=== PATIENT | female | born 1965 | race Caucasian/White ===

== ENCOUNTER → 2018-03-07 07:37 | Outpatient (CLI) | payer OTHER, SELFPAY ==
--- NOTE | 2018-03-07 | DI.MG.S_ITS ---
BILATERAL DIGITAL SCREENING MAMMOGRAM 3D/2D WITH CAD: 03/07/2018 CLINICAL: Routine screening. Comparison is made to exams dated: 02/17/2016 mammogram, 12/20/2014 mammogram, and 11/04/2011 mammogram - [facility]. The tissue of both breasts is extremely dense, which lowers the sensitivity of mammography. Current study was also evaluated with a Computer Aided Detection (CAD) system. No significant masses, calcifications, or other findings are seen in either breast. There has been no significant interval change. IMPRESSION: NEGATIVE There is no mammographic evidence of malignancy. A 1 year screening mammogram is recommended. This exam was interpreted at Station ID: [id number]. NOTE: For mammograms, a report in lay terms will be sent to the patient. Approximately 15% of breast malignancies will not be visualized mammographically. In the management of a palpable breast mass, a negative mammogram must not discourage biopsy of a clinically suspicious lesion. Electronically Signed By: Freedom hamilton/dameon:03/07/2018 13:19:21 copy to: Martha Collire letter sent: Normal Exam ACR BI-RADS Category 1: Negative 3341F
== END ==
PROVIDERS: Family Provider Family Medicine; PCP Family Medicine; Visit Provider Nurse Practitioner Family
DX: Z12.31 Encounter for screening mammogram for malignant neoplasm of breast (principal)
CPT/HCPCS: 77063; 77067

== ENCOUNTER → 2019-03-27 07:43 | Outpatient (CLI) | payer OTHER, SELFPAY ==
--- NOTE | 2019-03-27 | DI.MG.S_ITS ---
BILATERAL DIGITAL SCREENING MAMMOGRAM 3D/2D WITH CAD: 03/27/2019 CLINICAL: Routine screening. Comparison is made to exams dated: 03/07/2018 mammogram, 02/17/2016 mammogram, 01/03/2015 mammogram, and 12/20/2014 mammogram - [facility]. The tissue of both breasts is extremely dense, which lowers the sensitivity of mammography. Current study was also evaluated with a Computer Aided Detection (CAD) system. No significant masses, calcifications, or other findings are seen in either breast. There has been no significant interval change. IMPRESSION: NEGATIVE There is no mammographic evidence of malignancy. A 1 year screening mammogram is recommended. This exam was interpreted at Station ID: [id number]. NOTE: For mammograms, a report in lay terms will be sent to the patient. Approximately 15% of breast malignancies will not be visualized mammographically. In the management of a palpable breast mass, a negative mammogram must not discourage biopsy of a clinically suspicious lesion. Electronically Signed By: Lloyd chavez/dameon:03/28/2019 08:50:29 copy to: Martha Collier letter sent: Normal Exam ACR BI-RADS Category 1: Negative 3341F
== END ==
PROVIDERS: Family Provider Family Medicine; PCP Family Medicine; Visit Provider Family Medicine
DX: Z12.31 Encounter for screening mammogram for malignant neoplasm of breast (principal)
CPT/HCPCS: 77063; 77067

== ENCOUNTER → 2019-09-29 14:57 | Outpatient (CLI) | payer OTHER, SELFPAY ==
[2019-10-02 21:08] LABS: COVID19 Sendout Not Detected (Not Detect)
== END ==
PROVIDERS: PCP Family Medicine; Visit Provider Physician Assistant
DX: Z11.59 Encounter for screening for other viral diseases (principal)
CPT/HCPCS: 87635

== ENCOUNTER 2019-10-02 13:46 | Day surgery (SDC) | payer OTHER, SELFPAY ==
--- NOTE | 2019-10-02 12:24 | PM.HP.1 ---
History of Present Illness History of Present Illness Date Patient Seen: 10/02/19 Chief complaint: SDC Narrative: 54 Years Old Female seen today for consideration of a screening colonoscopy. There have been no lower GI symptoms suggesting disease such as change in bowel habits, bleeding, abdominal pain or anemia. There's been no family history of colon cancer or colon polyps. Overall health issues have been stable, including no major cardiac events for at least 6 weeks. Current Medications (verified): 1) Hydrochlorothiazide 25 Mg Oral Tablet (Hydrochlorothiazide) .... Take 1 tablet by mouth once a day, for blood pressure control. 2) Acyclovir 400 Mg Oral Tablet (Acyclovir) .... Take one by mouth every day. If outbreak occurs, then take one by mouth three times daily for 5 days. 3) Mirena (52 Mg) 20 Mcg/24hr Intrauterine Intrauterine Device (Levonorgestrel) .... 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 Household Members: [employer] Education: 14 Alcohol: 4-5/week Patient History Medical History (Updated 10/02/19 @ 14:11 by Bennett Ritchie) Encounter for insertion of mirena IUD (Acute) Meds Home Medications and Allergies Home Medications Medication Instructions Recorded Confirmed Type acyclovir 400 mg PO DAILY 10/02/19 10/02/19 History hydrochlorothiazide 25 mg PO DAILY 10/02/19 10/02/19 History Allergies Allergy/AdvReac Type Severity Reaction Status Date / Time Penicillins AdvReac Unknown as a Verified 10/02/19 14:10 child, unknown rxn Review of Systems Review of Systems ROS: Yes All systems reviewed with the patient and are negative except as otherwise documented Exam Narrative Exam Narrative: GENERAL: Alert and oriented, appearing stated age and in no acute distress. HEENT: Head normocephalic/atraumatic. Neck soft and supple, no lymphadenopathy. LUNGS: Clear to ausculation bilaterally, no wheezes, rhonchi or rales. CV: Normal S1 and S2 with regular rate and rhythm, no audible murmurs, rubs or gallops. ABDOMEN: Soft, non-tender, non-distended, no organomegaly. Positive bowel sounds. EXTREMITIES: No clubbing, cyanosis, or edema. NEURO: Cranial nerves II through XII grossly intact, no focal deficits. PSYCH: Alert and oriented x 3. SKIN: No concerning lesions. Assessment & Plan Assessment & Plan narrative: 1. Screening for colon cancer Plan for colonoscopy. The nature and character of the procedure as well as anticipated results were discussed. The possibility of not completing the procedure was also discussed. Possible complications including aspiration pneumonia, bleeding, perforation and reaction to medications either for sedation or preparation and missed lesions were discussed. Questions were answered and proceeding to the colonoscopy was elected. Informed consent signed. I sincerely appreciate the referral allowing me to participate in this patient's care. Please contact me with any questions or concerns.
--- NOTE | 2019-10-02 12:26 | PM.OP.ENDO ---
Operative Date/Time/Diagnoses Date of procedure: 10/02/19 Pre-op diagnosis: Screening for colon cancer Post-op diagnosis: other (Normal colonoscopy) Procedure & Clinicians Study performed: Colonoscopy Same procedure as scheduled: Yes Indications: Screening for colon cancer Surgeon: Love Paredes Procedure Notes SCOAP/Timeout: 15:26 Procedure in detail: ENDOSCOPIST: Love Paredes MD Sedation RN: Brianda Cervantes RN Sedation start time: 15:27 Sedation end time: 15:54 PROCEDURE: Colonoscopy INDICATIONS: 1. Screening for colon cancer MEDICATION: Levsin 0.125 mg sublingual, incremental doses of Versed and fentanyl until appropriate level sedation achieved. ASA CLASS: 2 CECAL WITHDRAWAL TIME: 14 minutes COMPLICATIONS: None. EXTENT OF PROCEDURE: Cecum. QUALITY OF PREP: Good with portions of liquid stool. PROCEDURE: Prior to insertion of the colonoscope, a digital rectal examination was accomplished with circumferential palpation of the distal rectal mucosa without significant findings being noted. The high-definition colonoscope was passed into the rectum in the usual fashion and advanced over to the cecum without difficulty. The ileocecal valve, appendiceal stoma, and medial wall all could be inspected and no abnormalities were seen. ASCENDING COLON: As the colonoscope was withdrawn, care was taken to expose and inspect the haustral folds and no abnormalities were seen. HEPATIC FLEXURE: Normal, no polyps, diverticula or other abnormalities. TRANSVERSE COLON: Normal, no polyps, diverticula or other abnormalities. DESCENDING COLON: Normal, no polyps, diverticula or other abnormalities. SIGMOID COLON: Normal, no polyps, diverticula or other abnormalities. RECTUM: Normal. J maneuver was produced. There was no significant perianal disease. The J maneuver was broken. The remainder of the rectum was inspected and there was no external hemorrhoid disease. The scope was withdrawn. IMPRESSION: 1. Normal colonoscopy PLAN: 1. Repeat colonoscopy in 10 years. The possibility of a missed lesion including a malignancy has been discussed with the patient previously. Potential alarm symptoms have been discussed and should be reported immediately. Complications: none Post-procedure Recommendations: Colonscopy in 10 years Follow up: as needed Disposition: PACU
[2019-10-02 14:11] VITALS: BMI 23.6
[2019-10-02 14:16] VITALS: BP 137/89; PULSE 63; RESP 16; TEMP 37; O2SAT 96
[2019-10-02] MEDS: LACTATED RINGERS 1,000 ML 200 ML IV (14:28)
[2019-10-02] MEDS: HYOSCYAMINE 0.125 MG TABLET PO (14:32)
[2019-10-02 15:08] LABS: COVID19 -Nasal RAPID Negative (Negative)
[2019-10-02] MEDS: fentaNYL 250 MCG/5 ML INJ IV (15:42)
[2019-10-02] MEDS: MIDAZOLAM 5 MG/5 ML VIAL IV (15:42)
[2019-10-02 16:03] VITALS: BP 133/78; PULSE 59; RESP 12; O2SAT 97
[2019-10-02 16:09] VITALS: BP 124/79; PULSE 54; RESP 16; O2SAT 98
[2019-10-02 16:20] VITALS: BP 124/77; PULSE 56; RESP 16; TEMP 36.4; O2SAT 99
== END 2019-10-02 16:30 | disposition home or self-care (01) ==
PROVIDERS: PCP Family Medicine; Referring Provider Family Medicine; Visit Provider Student in an Organized Health Care Education/Training Program
PROC: 0DJD8ZZ Inspection of Lower Intestinal Tract, Via Natural or Artificial Opening Endoscopic (ICD-10-PCS; CPT 45378; principal; 2019-10-02 15:15)
DX: Z12.11 Encounter for screening for malignant neoplasm of colon (principal); Z11.59 Encounter for screening for other viral diseases; I10 Essential (primary) hypertension; E78.5 Hyperlipidemia, unspecified; A60.00 Herpesviral infection of urogenital system, unspecified
CPT/HCPCS: 45378; 87635; J2250; J3010

== ENCOUNTER → 2020-05-02 08:39 | Outpatient (CLI) | payer OTHER, SELFPAY ==
--- NOTE | 2020-05-02 | DI.MG.S_ITS ---
BILATERAL DIGITAL SCREENING MAMMOGRAM 3D/2D WITH CAD: 05/02/2020 CLINICAL: Routine screening. Comparison is made to exams dated: 03/27/2019 mammogram, 03/07/2018 mammogram, and 02/17/2016 mammogram - [facility]. The tissue of both breasts is extremely dense, which lowers the sensitivity of mammography. Current study was also evaluated with a Computer Aided Detection (CAD) system. No significant masses, calcifications, or other findings are seen in either breast. There has been no significant interval change. IMPRESSION: NEGATIVE There is no mammographic evidence of malignancy. A 1 year screening mammogram is recommended. This exam was interpreted at Station ID: [id number]. NOTE: For mammograms, a report in lay terms will be sent to the patient. Approximately 15% of breast malignancies will not be visualized mammographically. In the management of a palpable breast mass, a negative mammogram must not discourage biopsy of a clinically suspicious lesion. Electronically Signed By: Nicolas Leblanc acr/penrad:05/02/2020 09:07:12 copy to: Martha Collier letter sent: Normal Exam ACR BI-RADS Category 1: Negative 3341F
== END ==
PROVIDERS: PCP Family Medicine; Referring Provider Nurse Practitioner Family; Visit Provider Nurse Practitioner Family
DX: Z12.31 Encounter for screening mammogram for malignant neoplasm of breast (principal)
CPT/HCPCS: 77063; 77067

== ENCOUNTER 2021-12-05 18:20 | Emergency (ER) | payer OTHER, SELFPAY ==
[2021-12-05 18:28] VITALS: BP 166/93; PULSE 79; RESP 18; TEMP 36.3; O2SAT 98; BMI 21.9
--- NOTE | 2021-12-05 19:39 | DI.US.S_ITS ---
PROCEDURE: US PERIPH VENOUS UP EXTREM RT INDICATIONS: RUQ PAIN TECHNIQUE: Real-time imaging, as well as color and pulse Doppler interrogation, was performed of the right upper extremity deep veins from the inferior neck to the antecubital fossa. COMPARISON: None. FINDINGS: The internal jugular vein, visualized portions of the subclavian vein, axillary, and brachial veins are free of intraluminal thrombus. Where physically possible, the veins are normally compressible. Color and pulse Doppler demonstrate normal intraluminal flow, with expected phasicity and pulsatility. Additional scanning of the cephalic and basilic veins of the superficial system demonstrate normal compressibility, without thrombus. IMPRESSION: 1. No evidence of deep venous thrombosis in the right upper extremity. Dictated by: Freedom Rebolledo M.D. on 12/05/2021 at 21:21 Approved by: Freedom Rebolledo M.D. on 12/05/2021 at 21:22
--- NOTE | 2021-12-05 19:39 | ED_ITS ---
HPI - Extremity Injury (Upper) General Chief Complaint: Extremity Injury, Upper Stated Complaint: strange sensation in her right bicep/upper arm Time Seen by Provider: 12/05/21 19:23 Source: patient Mode of arrival: Ambulatory History of Present Illness HPI narrative: 56-year-old female nonsmoker with noncontributory medical history presents at the request of her primary care provider for evaluation of pain, fullness in his squeezing sensation of her right upper extremity. She states that she is twice had mechanical falls in the past week in which she fell forward onto outstretched arms and is noticing for the past few days the symptoms noted above. She has no significant shoulder elbow or wrist pain. She denies any numbness, tingling or weakness. She denies any redness or warmth nor any fever, shaking chills. She denies any history of clot. She denies chest pain or shortness of breath. She is not dizzy nor weak or lightheaded. She is otherwise well and free of complaint. She had called her primary care provider and discussed over the phone at which point she was sent here for evaluation of possible DVT Related Data Home Medications Medication Instructions Recorded Confirmed acyclovir 400 mg tablet 400 mg PO DAILY 10/02/19 10/02/19 hydrochlorothiazide 25 mg tablet 25 mg PO DAILY 10/02/19 10/02/19 Allergies Allergy/AdvReac Type Severity Reaction Status Date / Time Penicillins AdvReac Unknown as a Verified 10/02/19 14:10 child, unknown rxn Review of Systems Review of Systems Narrative: GENERAL: Denies chills, fatigue, malaise, fever, sweats. HEENT: Denies sinus pain, ear pain, sore throat, difficulty swallowing, dizziness. RESPIRATORY: Denies dyspnea, cough, wheezing, hemoptysis, sputum. CARDIOVASCULAR: Denies chest pain, palpitations, orthopnea, edema, GASTROINTESTINAL: Denies nausea, vomiting, abdominal pain, diarrhea, constipation, melena. : Denies dysuria, frequency, incontinence, hematuria, urinary retention. MUSCULOSKELETAL: See HPI SKIN: Denies rash, skin lesions, or other NEUROLOGIC: Denies weakness, headache, numbness, change in speech, confusion, seizures, incoordination. PSYCHIATRIC: No concerning psychosocial issues. 12 point review of systems is negative except for those stated above Patient History Medical History Encounter for insertion of mirena IUD Social History household members: spouse Smoking Status: Never smoker alcohol intake: current Smoking Status: Never smoker alcohol intake frequency: 0-2 drinks per day Substance Use Type: does not use Exam Narrative Exam Narrative: GENERAL: [56] year old patient appears stated age. Well-developed patient, in mild distress. HEAD: Atraumatic. Normocephalic. EYES: Pupils equal round and reactive. Extraocular motions intact. No scleral icterus. No injection or drainage. ENT: Nose without bleeding, purulent drainage. Throat without erythema, tonsillar hypertrophy or exudate. Airway patent. NECK: Trachea midline. Non tender CARDIOVASCULAR: Regular rate and rhythm without murmurs, gallops, or rubs. RESPIRATORY: Clear to auscultation. Breath sounds equal bilaterally. No wheezes, rales, or rhonchi. GASTROINTESTINAL: Abdomen soft, non-tender, nondistended. EXTREMITIES: No edema or joint tenderness. Patient describes a fullness or squeezing sensation around her right biceps, pointing to the underside, or lying the vascular bundle. There is no obvious redness, swelling, ecchymosis or reproducible tenderness. She has full painless range of motion at the shoulder, elbow and wrist. There is no numbness, tingling or measurable weakness BACK: Nontender without deformity or crepitance. No flank tenderness. NEURO: AOx3. SKIN: No rash or erythema of visible areas Initial Vital Signs Initial Vital Signs: Vital Signs Temperature 97.4 F L 12/05/21 18:28 Pulse Rate 79 12/05/21 18:28 Respiratory Rate 18 12/05/21 18:28 Blood Pressure 166/93 H 12/05/21 18:28 Pulse Oximetry 98 12/05/21 18:28 Oxygen Delivery Method 12/05/21 18:28 Course Orders Ordered: ED Orders 12/05/21 19:39 US periph venous up extrem rt Stat Vital Signs Vital signs: Vital Signs - 8 hr 12/05/21 18:28 12/05/21 20:45 Temperature 97.4 F L Pulse Rate 79 67 Respiratory Rate 18 16 Blood Pressure 166/93 H 141/84 H Pulse Oximetry 98 99 Oxygen Delivery Method Room Air Room Air MDM - Extremity Injury (Upper) Imaging Data US - DVT: Radiologist's Impression: Close Peripheral Vascular Ultrasound (Signed) Freedom Rebolledo - 12/05/21 Mammogram Screening (Signed) TyronsaschaNicolas - 05/02/20 Telemetry Strips 10/02/19 Mammogram Screening (Signed) Lloyd Santos - 03/27/19 Mammogram Screening (Signed) Freedom Rebolledo - 03/07/18 Launch?[address] [address] Ultrasound Report Signed Patient: Janet Raza MR#: [id number] : 1965 Acct:[id number] Age/Sex: 56 / F Date of Service: 12/05/21 Loc: ED Accession Number: [id number] ?? Procedure: US periph venous up extrem rt Ordering Provider: Dean Serna D.O. PROCEDURE:? US PERIPH VENOUS UP EXTREM RT ? INDICATIONS:? RUQ PAIN ? TECHNIQUE:? Real-time imaging, as well as color and pulse Doppler interrogation, was performed of the right upper extremity deep veins from the inferior neck to the antecubital fossa.? ? COMPARISON:? None. ? FINDINGS:? The internal jugular vein, visualized portions of the subclavian vein, axillary, and brachial veins are free of intraluminal thrombus.? Where physically possible, the veins are normally compressible.? Color and pulse Doppler demonstrate normal intraluminal flow, with expected phasicity and pulsatility.? Additional scanning of the cephalic and basilic veins of the superficial system demonstrate normal compressibility, without thrombus.? ? IMPRESSION:? ? 1.? No evidence of deep venous thrombosis in the right upper extremity. ? ? Dictated by: Freedom Rebolledo M.D. on 12/05/2021 at 21:21 ? ? Approved by: Freedom Rebolledo M.D. on 12/05/2021 at 21:22 ? [facility] Narrative Medical decision making narrative: Patient presents with discomfort in a squeezing sensation on the underside of her right upper arm for the past few days. She reports that she is had a history of this previous times in the past but it never lasted more than 2 or 3 days. She had spoken with her primary care provider and was sent here for evaluation and to rule out a DVT. There was discussion at the bedside about the very reassuring history and physical exam without any obvious external manifestation of disease or illness. We did discuss x-ray but patient had no bony tenderness and full painless range of motion. There is no redness, warmth or swelling to suggest infection. Ultrasound was ordered and there is no evidence of DVT. Return precautions discussed and questions answered to her apparent satisfaction Discharge Plan Departure Patient Disposition: Home Clinical Impression: Arm pain Instructions: DI for Arm Pain Activity Restrictions/Additional Instructions: *You have been diagnosed with [right arm pain. As we discussed your history and physical exam are reassuring and the ultrasound showed no evidence of blood clot. Furthermore, as we discussed my suspicion is quite low for infection, fracture or any kind of significant nerve issue that would require specific or immediate intervention] *What to do: *Please continue to take your regular medications as directed. *Please follow up with your primary care provider in 2-3 days, call for an appointment. Let them know you were seen in the Emergency Department and that we ask that you be seen in follow up. We will electronically transmit a record of today's note if your PCP is in our system *If you do not have a primary care provider please contact the [facility] Resource line at [phone]. They will ask some questions about your medical history and help get you set up with a doctor in the community. *Return to Emergency Department if you should have any new, worsening or concerning symptoms, such as [fever greater than 101 F, shaking chills, worsening pain, persistent vomiting or other bothersome symptoms] Prescriptions: No Action acyclovir 400 mg tablet 400 mg PO DAILY hydrochlorothiazide 25 mg tablet 25 mg PO DAILY Referrals: Martha Collier MD [Primary Care Provider] - Visit Report Forms: Patient Portal/API
[2021-12-05 20:45] VITALS: BP 141/84; PULSE 67; RESP 16; O2SAT 99
== END 2021-12-05 20:47 | disposition home or self-care (01) ==
PROVIDERS: Emergency Provider Emergency Medicine; PCP Family Medicine
DX: M79.601 Pain in right arm (principal)
CPT/HCPCS: 93971; 99281; 99283

== ENCOUNTER → 2023-02-24 15:48 | Outpatient (ROUT) | payer BC, SELFPAY ==
[2023-02-24 17:33] LABS: Influenza A - CEPHEID Flu A NEGATIVE (NEGATIVE); Influenza B - CEPHEID Flu B NEGATIVE (NEGATIVE)
[2023-02-24 17:43] LABS: COVID-19 CEPHEID 4-PLEX PCR Negative (Negative)
[2023-02-25 10:56] LABS: Respiratory Syncytial Virus Negative (Negative)
== END ==
PROVIDERS: PCP Family Medicine; Visit Provider Internal Medicine
DX: R05.2 Subacute cough (principal)
CPT/HCPCS: 0240U; 0241U

== ENCOUNTER → 2023-08-18 07:44 | Outpatient (CLI) | payer BC, SELFPAY ==
--- NOTE | 2023-08-18 07:45 | DI.MG.S_ITS ---
BILATERAL DIGITAL SCREENING MAMMOGRAM 3D/2D WITH CAD: 08/18/2023 CLINICAL: Routine screening. Comparison is made to exams dated: 05/02/2020 mammogram, 03/27/2019 mammogram, and 03/07/2018 mammogram - [facility]. Both breasts are heterogeneously dense, which may obscure small masses (category c / 51-75% glandular tissue). Current study was also evaluated with a Computer Aided Detection (CAD) system. No significant masses, calcifications, or other findings are seen in either breast. There has been no significant interval change. IMPRESSION: NEGATIVE There is no mammographic evidence of malignancy. A 1 year screening mammogram is recommended. Based on the Tyrer Cuzick model (a risk assessment model) the patient's lifetime risk is 13.1% and her 10 year risk is 4.9%. According to the ACR, ACS, and NCCN guidelines, an annual breast MRI exam along with mammogram is recommended if the patient's lifetime risk is 20% or greater. This exam was interpreted at Station ID: [id number]. NOTE: For mammograms, a report in lay terms will be sent to the patient. Approximately 15% of breast malignancies will not be visualized mammographically. In the management of a palpable breast mass, a negative mammogram must not discourage biopsy of a clinically suspicious lesion. Electronically Signed By: Kayla hylton/dameon:08/20/2023 15:37:58 copy to: Martha Collier letter sent: Normal Exam ACR BI-RADS Category 1: Negative 3341F
== END ==
LOC: MAMMO 07:45
PROVIDERS: PCP Family Medicine; Referring Provider Family Medicine; Visit Provider Family Medicine
DX: Z12.31 Encounter for screening mammogram for malignant neoplasm of breast (principal); R92.333 Mammographic heterogeneous density, bilateral breasts
CPT/HCPCS: 77063; 77067

== ENCOUNTER 2025-01-05 06:04 | Emergency (ER) | payer BC, SELFPAY ==
[2025-01-05] VITALS (9 sets, daily range): BP systolic 140–188; BP diastolic 68–92; PULSE 58–89; RESP 15–20; TEMP 36.1; O2SAT 97–99; BMI 22.2
--- NOTE | 2025-01-05 06:09 | EKG_ITS ---
[facility]
--- NOTE | 2025-01-05 06:09 | DI.RAD.S_ITS ---
PROCEDURE: XR CHEST 1V
--- NOTE | 2025-01-05 06:09 | ED.SYNCOPE ---
HPI - Syncope <Aleks Wright DO - Last Filed: 01/05/25 06:47> General Chief Complaint: Syncope Stated Complaint: Possible stitches under chin x 1 day Time Seen by Provider: 01/05/25 06:05 History of Present Illness HPI narrative: 59-year-old female no significant past medical history comes into the ED from home for evaluation of chin pain, patient states that last night she did have some alcohol states that she ended up passing out secondary to this, she states that she is not sure how long she was on the floor but was able to stand bear weight ambulate immediately after, she states that when she got inside she had another syncopal episode. She states that she was not having any headache visual disturbances chest pain shortness of breath before during or after these episodes. She states that she did notice a cut to the bottom of her chin which prompted her to come into the ED. she denies any symptoms at this time. She states that this has happened in the past twice but never seek medical attention for this. Related Data Home Medications ?Medication ?Instructions ?Recorded ?Confirmed acyclovir 400 mg tablet 400 mg PO DAILY 10/02/19 10/17/22 hydrochlorothiazide 25 mg tablet 25 mg PO DAILY 10/02/19 10/17/22 Allergies Allergy/AdvReac Type Severity Reaction Status Date / Time Penicillins AdvReac Unknown as a Verified 01/05/25 06:11 child, unknown rxn Review of Systems <DO Chilo Crocker Last Filed: 01/05/25 06:47> Review of Systems Narrative: General: Positive syncope Denies fever, chills, weight loss HEENT: Positive cut to the chin, Denies headache, eye drainage, eye irritation, sore throat, voice change Cardiovascular: Denies any chest pain, palpitations, tachycardia Respiratory: Denies any shortness of breath, cough, wheeze, stridor GI/: Denies any abdominal pain, nausea, vomiting, diarrhea, bright red blood per rectum, melanotic stools, urinary frequency, urinary retention, dysuria, hematuria MSK: Denies any joint pain, muscle pains, swelling Skin: Denies any rashes, lesions, discoloration Neuro: Denies any headache, lightheadedness, dizziness, fainting, weakness Psych: Denies SI/HI Patient History <Aleks Wright DO - Last Filed: 01/05/25 06:47> Medical History Encounter for insertion of mirena IUD Social History household members: spouse Smoking Status: Never smoker alcohol intake: current alcohol intake frequency: 0-2 drinks per day Exam <Aleks Wright DO - Last Filed: 01/05/25 06:47> Narrative Exam Narrative: General: Cooperative, well-developed, not in acute distress HEENT: Patient with 1 cm laceration noted to the bottom of the chin no active bleeding no foreign body, PERRLA, normal sclera, eyelids normal Neck: Active full range of motion, atraumatic Chest: Normal to inspection, negative crepitus, no overlying erythema ecchymosis Respiratory: Normal respiratory effort, not in acute respiratory distress, clear to auscultation bilaterally negative cough, wheeze, tachypnea, rhonchi, rales Cardiology: Regular rate rhythm negative gallop, murmur, rubs GI/: No tenderness to palpation, soft, non rigid, normal to inspection, exam deferred MSK: Full active range of motion in all 4 extremities, atraumatic, no tenderness to palpation of any bony prominences Skin: No rashes or lesions noted Neuro: Alert awake oriented x3, moves all 4 extremities spontaneously, cranial nerves intact, able to answer all questions appropriately follows commands appropriately Psych: Cooperative, negative suicidal or homicidal ideations Initial Vital Signs Initial Vital Signs: Vital Signs Temperature 97.0 F L 01/05/25 06:11 Pulse Rate 89 01/05/25 06:11 Respiratory Rate 20 01/05/25 06:11 Blood Pressure 188/92 H 01/05/25 06:11 Pulse Oximetry 99 01/05/25 06:11 Oxygen Delivery Method Room Air 01/05/25 06:11 <Venkatesh Watkins, DO - Last Filed: 01/05/25 09:48> Initial Vital Signs Initial Vital Signs: Vital Signs Temperature 97.0 F L 01/05/25 06:11 Pulse Rate 89 01/05/25 06:11 Respiratory Rate 20 01/05/25 06:11 Blood Pressure 188/92 H 01/05/25 06:11 Pulse Oximetry 99 01/05/25 06:11 Oxygen Delivery Method Room Air 01/05/25 06:11 Procedures <DO Chilo Crocker Last Filed: 01/05/25 06:47> Laceration Repair Laceration 1: Time of procedure: 06:28 Site: other (chin) Size (cm): 1 Description: linear Depth: simple, single layer Local Anesthetic: lidocaine 1% Amount of anesthesia used (mL): 2 Skin layer closed with: other (ethilon) Skin layer suture size: 5-0 Number of sutures: 3 Technique: simple, interrupted Course <Aleks DO Kyle - Last Filed: 01/05/25 06:47> Orders Ordered: ED Orders 01/05/25 06:09 XR chest 1V Stat EKG-12 Lead Stat 01/05/25 06:10 CT cervical spine wo con Stat CT head/brain wo con Stat 01/05/25 06:36 Complete Blood Count AUTO DIFF Stat Comprehensive Metabolic Panel Stat Lipase Stat Magnesium Stat NT-proBNP (BNP-Adult 18+) Stat PTT Partial Thromboplastin David Stat Prothrombin Time INR Stat Troponin I Stat 01/05/25 08:58 Trop I [Troponin I] Stat Discontinued Medications Diphtheria/Tetanus/Acell Pertussis (Tet,Diph,Pertuss(Acell),Vac/Pf 0.5 Ml Syringe) 0.5 ml IM .ONCE ONE Stop: 01/05/25 06:10 Last Admin: 01/05/25 06:42 Dose: 0.5 ml Documented By: NAKITA Sodium Chloride (Normal Saline 0.9%) 1,000 mls @ 1,000 mls/hr IV BOLUS ONE Stop: 01/05/25 07:08 Last Infusion: 01/05/25 09:07 Dose: Infused Documented By: Admin: 01/05/25 06:41 Dose: 1,000 mls/hr Documented By: NAKITA Vital Signs Vital signs: Vital Signs - 8 hr 01/05/25 06:11 01/05/25 06:32 01/05/25 06:33 Temperature 97.0 F L Pulse Rate 89 65 64 Respiratory Rate 20 Blood Pressure 188/92 H Pulse Oximetry 99 99 99 Oxygen Delivery Method Room Air 01/05/25 06:33 01/05/25 07:00 01/05/25 07:00 Temperature Pulse Rate 59 L Respiratory Rate Blood Pressure 160/88 H 140/86 Pulse Oximetry 97 Oxygen Delivery Method 01/05/25 07:30 01/05/25 07:30 01/05/25 08:00 Temperature Pulse Rate 58 L 58 L Respiratory Rate Blood Pressure 152/80 H Pulse Oximetry 98 98 Oxygen Delivery Method 01/05/25 08:00 01/05/25 09:25 01/05/25 09:25 Temperature Pulse Rate 66 Respiratory Rate Blood Pressure 158/84 H 148/68 H Pulse Oximetry 98 Oxygen Delivery Method <Venkatesh Watkins, DO - Last Filed: 01/05/25 09:48> Orders Ordered: ED Orders 01/05/25 06:09 XR chest 1V Stat EKG-12 Lead Stat 01/05/25 06:10 CT cervical spine wo con Stat CT head/brain wo con Stat 01/05/25 06:36 Complete Blood Count AUTO DIFF Stat Comprehensive Metabolic Panel Stat Lipase Stat Magnesium Stat NT-proBNP (BNP-Adult 18+) Stat PTT Partial Thromboplastin David Stat Prothrombin Time INR Stat Troponin I Stat 01/05/25 08:58 Trop I [Troponin I] Stat Discontinued Medications Diphtheria/Tetanus/Acell Pertussis (Tet,Diph,Pertuss(Acell),Vac/Pf 0.5 Ml Syringe) 0.5 ml IM .ONCE ONE Stop: 01/05/25 06:10 Last Admin: 01/05/25 06:42 Dose: 0.5 ml Documented By: NAKITA Sodium Chloride (Normal Saline 0.9%) 1,000 mls @ 1,000 mls/hr IV BOLUS ONE Stop: 01/05/25 07:08 Last Infusion: 01/05/25 09:07 Dose: Infused Documented By: Admin: 01/05/25 06:41 Dose: 1,000 mls/hr Documented By: NAKITA Vital Signs Vital signs: Vital Signs - 8 hr 01/05/25 06:11 01/05/25 06:32 01/05/25 06:33 Temperature 97.0 F L Pulse Rate 89 65 64 Respiratory Rate 20 Blood Pressure 188/92 H Pulse Oximetry 99 99 99 Oxygen Delivery Method Room Air 01/05/25 06:33 01/05/25 07:00 01/05/25 07:00 Temperature Pulse Rate 59 L Respiratory Rate Blood Pressure 160/88 H 140/86 Pulse Oximetry 97 Oxygen Delivery Method 01/05/25 07:30 01/05/25 07:30 01/05/25 08:00 Temperature Pulse Rate 58 L 58 L Respiratory Rate Blood Pressure 152/80 H Pulse Oximetry 98 98 Oxygen Delivery Method 01/05/25 08:00 01/05/25 09:25 01/05/25 09:25 Temperature Pulse Rate 66 Respiratory Rate Blood Pressure 158/84 H 148/68 H Pulse Oximetry 98 Oxygen Delivery Method MDM - Syncope <Aleks Wright, DO - Last Filed: 01/05/25 06:47> Lab Data 01/05/25 06:36 01/05/25 06:36 Labs: Lab Results 01/05/25 01/05/25 Range/Units 06:36 08:58 WBC 7.7 (4.5-11.0) X10^3/uL RBC 4.56 (4.0-5.2) X10^6/uL Hgb 14.1 (12.0-16.0) g/dL Hct 41.4 (36-46) % MCV 90.8 (80-100) fL MCH 30.9 (26-34) PG MCHC 34.0 (30-36) % RDW 13.2 (11.6-14.8) % Plt Count 181 (150-400) X10^3/uL Neut % (Auto) 75.5 H (50-75) % Lymph % (Auto) 16.5 L (25-40) % Boundary % (Auto) 6.7 (3-14) % Eos % (Auto) 0.9 L (2-4) % Baso % (Auto) 0.4 (0-2) % Neut # (Auto) 5800 (8789-2568) /uL Lymph # (Auto) 1300 (0219-9115) /uL Boundary # (Auto) 500 (0-900) /uL Eos # (Auto) 100 (0-450) /uL Baso # (Auto) 0 (0-100) /uL PT 10.6 (9.4-12.5) SECONDS INR 0.9 (0.9-1.3) APTT 25 L (25.1-36.5) SECONDS Sodium 138 (137-145) mmol/L Potassium 4.3 (3.4-5.1) mmol/L Chloride 103 (98-107) mmol/L Carbon Dioxide 29 (22-32) mmol/L BUN 15 (7-17) mg/dL Creatinine 0.81 (0.52-1.04) mg/dL Estimated GFR > 60 (>60) mL/min BUN/Creatinine Ratio 18.5 (6-22) Glucose 106 H (70-99) mg/dL Calcium 9.1 (8.4-10.2) mg/dL Magnesium 1.9 (1.6-2.3) mg/dL Total Bilirubin 0.8 (0.2-1.3) mg/dL AST 68 H (14-36) IU/L ALT 66 H (<35) IU/L Alkaline Phosphatase 66 (38-126) U/L Troponin I < 0.012 0.014 (0.01-0.034) ng/mL NT-Pro-B Natriuret Pep 110 (<125) pg/mL Total Protein 7.1 (6.3-8.2) g/dL Albumin 4.4 (3.5-5.0) g/dL Globulin 2.7 (1.7-4.1) g/dL Albumin/Globulin Ratio 1.6 (1.0-2.8) Lipase 118 (23-300) U/L ECG Data Interpretation: EKG interpreted ED physician sinus 62 beats per minute QTC 442, QRS NC interval within normal limits, normal axis nonspecific ST changes no STEMI MDM Narrative Medical decision making narrative: 59-year-old female without any pertinent past medical history comes into the ED from home for evaluation of syncope. She states that last night she did have some alcoholic beverages states that she ended up passing out secondary to this. She states that she is unsure how long she was unconscious for but was able to wake up ambulate, states this happened outside her house. He states that as she went back inside of the house she had another episode of syncope. Denies any chest pain shortness breath before during or after these episodes. She states that she noticed a cut to the bottom of her chin was just performed prompted her in. She states that this is happened 2 times in the past with very similar situations. She did not seek medical attention at that time. Patient unsure of tetanus vaccination status this was updated here. On my exam she does have a 1 cm laceration to the bottom of her chin no active bleeding she has no tenderness to palpation of any bony prominences. She has NIH of 0 no focal deficits. Patient did have lab work imaging EKG performed here in the emergency department patient had 3 sutures placed to the chin, 5 0 Ethilon patient had 3 simple interrupted sutures placed. 0700: Patient was signed out to Dr. Watkins, final disposition pending for workup imaging and re-evaluation <Venkatesh Watkins, DO - Last Filed: 01/05/25 09:48> Lab Data Labs: Lab Results 01/05/25 01/05/25 Range/Units 06:36 08:58 WBC 7.7 (4.5-11.0) X10^3/uL RBC 4.56 (4.0-5.2) X10^6/uL Hgb 14.1 (12.0-16.0) g/dL Hct 41.4 (36-46) % MCV 90.8 (80-100) fL MCH 30.9 (26-34) PG MCHC 34.0 (30-36) % RDW 13.2 (11.6-14.8) % Plt Count 181 (150-400) X10^3/uL Neut % (Auto) 75.5 H (50-75) % Lymph % (Auto) 16.5 L (25-40) % Boundary % (Auto) 6.7 (3-14) % Eos % (Auto) 0.9 L (2-4) % Baso % (Auto) 0.4 (0-2) % Neut # (Auto) 5800 (6993-4178) /uL Lymph # (Auto) 1300 (3626-4989) /uL Boundary # (Auto) 500 (0-900) /uL Eos # (Auto) 100 (0-450) /uL Baso # (Auto) 0 (0-100) /uL PT 10.6 (9.4-12.5) SECONDS INR 0.9 (0.9-1.3) APTT 25 L (25.1-36.5) SECONDS Sodium 138 (137-145) mmol/L Potassium 4.3 (3.4-5.1) mmol/L Chloride 103 (98-107) mmol/L Carbon Dioxide 29 (22-32) mmol/L BUN 15 (7-17) mg/dL Creatinine 0.81 (0.52-1.04) mg/dL Estimated GFR > 60 (>60) mL/min BUN/Creatinine Ratio 18.5 (6-22) Glucose 106 H (70-99) mg/dL Calcium 9.1 (8.4-10.2) mg/dL Magnesium 1.9 (1.6-2.3) mg/dL Total Bilirubin 0.8 (0.2-1.3) mg/dL AST 68 H (14-36) IU/L ALT 66 H (<35) IU/L Alkaline Phosphatase 66 (38-126) U/L Troponin I < 0.012 0.014 (0.01-0.034) ng/mL NT-Pro-B Natriuret Pep 110 (<125) pg/mL Total Protein 7.1 (6.3-8.2) g/dL Albumin 4.4 (3.5-5.0) g/dL Globulin 2.7 (1.7-4.1) g/dL Albumin/Globulin Ratio 1.6 (1.0-2.8) Lipase 118 (23-300) U/L Imaging Data CT scan - head: Radiologist's Impression: Patient: Janet Raza MR#: [id number] : 1965 Acct:[id number] Age/Sex: 59 / F Date of Service: 01/05/25 Loc: ED Accession Number: [id number] Procedure: CT head/brain wo con Ordering Provider: Aleks Wright D.O. PROCEDURE: CT HEAD/BRAIN WO CON INDICATIONS: Trauma, hit chit s/p syncope TECHNIQUE: Noncontrast 4.5 mm thick angled axial sections acquired from the foramen magnum to the vertex, with coronal and sagittal reformats. For radiation dose reduction, the following was used: automated exposure control, adjustment of mA and/or kV according to patient size. COMPARISON: None. FINDINGS: Image quality: Diagnostic. CSF spaces: Basal cisterns are patent. No extra-axial fluid collections. Ventricles are normal in size and shape. Brain: No midline shift. No intracranial mass effect or hemorrhage. Tuttle-white matter interface is normal. Skull and face: Calvarium and visualized facial bones are intact, without suspicious lesions. Sinuses: Mild mucosal thickening in bilateral maxillary and ethmoid sinuses are seen. Bilateral mastoid air cells are well aerated. IMPRESSION: No acute intracranial pathology. No discrepancies from preliminary reading. CT - cervical spine: Radiologist's Impression: [address] [address] [address] Scan Report Signed Patient: Janet Raza MR#: [id number] : 1965 Acct:[id number] Age/Sex: 59 / F Date of Service: 01/05/25 Loc: ED Accession Number: [id number] Procedure: CT cervical spine wo con Ordering Provider: Aleks Wright D.O. PROCEDURE: CT CERVICAL SPINE WO CON INDICATIONS: trauma TECHNIQUE: Noncontrast 3 mm thick sections acquired from the skull base to the T4 level. Sagittal and coronal reformats were then constructed. For radiation dose reduction, the following was used: automated exposure control, adjustment of mA and/or kV according to patient size. COMPARISON: None. FINDINGS: Image quality: Excellent. Bones: No fractures or dislocations. Mild loss of disc height, degenerative endplate changes and bilateral facet hypertrophic changes are seen throughout cervical spine. Visualized superior ribs are intact. Soft tissues: Prevertebral soft tissues are normal in thickness. No paravertebral hematomas. No apical pneumothoraces. IMPRESSION: 1. No displaced fracture or traumatic subluxation. 2. Mild spondylitic changes throughout cervical spine. No significant discrepancies from preliminary reading. Chest x-ray: Radiologist's Impression: [address] [address] XRay Report Signed Patient: Janet Raza MR#: [id number] : 1965 Acct:[id number] Age/Sex: 59 / F Date of Service: 01/05/25 Loc: ED Accession Number: [id number] Procedure: XR chest 1V Ordering Provider: Aleks Wright D.O. PROCEDURE: XR CHEST 1V INDICATIONS: syncope TECHNIQUE: One view of the chest was acquired. COMPARISON: None. FINDINGS: Surgical changes and devices: None. Lungs and pleura: Lungs are clear. No pleural effusions or pneumothorax. Mediastinum: Mediastinal contours appear normal. Heart size is normal. Bones and chest wall: No suspicious bony lesions. Overlying soft tissues appear unremarkable. IMPRESSION: No acute cardiopulmonary pathology. No discrepancies. MDM Narrative Medical decision making narrative: 59-year-old female without any pertinent past medical history comes into the ED from home for evaluation of syncope. She states that last night she did have some alcoholic beverages states that she ended up passing out secondary to this. She states that she is unsure how long she was unconscious for but was able to wake up ambulate, states this happened outside her house. He states that as she went back inside of the house she had another episode of syncope. Denies any chest pain shortness breath before during or after these episodes. She states that she noticed a cut to the bottom of her chin was just performed prompted her in. She states that this is happened 2 times in the past with very similar situations. She did not seek medical attention at that time. Patient unsure of tetanus vaccination status this was updated here. On my exam she does have a 1 cm laceration to the bottom of her chin no active bleeding she has no tenderness to palpation of any bony prominences. She has NIH of 0 no focal deficits. Patient did have lab work imaging EKG performed here in the emergency department patient had 3 sutures placed to the chin, 5 0 Ethilon patient had 3 simple interrupted sutures placed. 0700: Patient was signed out to Dr. Watkins, final disposition pending for workup imaging and re-evaluation All lab work, vital signs, nurse triage note, medication list, previous ER visits, and all imaging studies reviewed. Chest x-ray showed no acute cardiopulmonary pathology. CT cervical showed no displaced fracture or traumatic subluxation. Mild spondylitic changes. throughout cervical spine. WBC 7.7 haley 14.1 platelet 181 sodium 138 potassium 4.3 chloride 103 CO2 29 BUN 15 creatinine 0.81 glucose 106 he is in 0.9 AST 68 ALT 66 2 sets of troponin less than 0.012. EKG showed normal sinus rhythm no STT wave changes Discharge Plan Departure Patient Disposition: Home Clinical Impression: Syncope, Chin laceration, Closed head injury Instructions: DI for Syncope in Adults (Fainting) Activity Restrictions/Additional Instructions: Return with new or worsening symptoms. Follow up with PCP for suture removal in 3-5 days. Prescriptions: No Action acyclovir 400 mg tablet 400 mg PO DAILY hydrochlorothiazide 25 mg tablet 25 mg PO DAILY Referrals: Martha Collier MD [Primary Care Provider, Family Practice] Stand Alone Forms: Patient Portal/API
--- NOTE | 2025-01-05 06:10 | DI.CT.S_ITS ---
PROCEDURE: CT HEAD/BRAIN WO CON
--- NOTE | 2025-01-05 06:10 | DI.CT.S_ITS ---
PROCEDURE: CT CERVICAL SPINE WO CON
--- NOTE | 2025-01-05 06:18 | PC.NURSE ---
Pt to imaging via ED stretcher with civil laboratory technician
[2025-01-05] MEDS: SODIUM CHLORIDE 0.9% 1,000 ML 1000 ML IV (06:41)
[2025-01-05] MEDS: TET,DIPH,PERTUSS(ACELL),VAC/PF 0.5 ML SYRINGE IM (06:42)
[2025-01-05 06:50] LABS: Add Manual Diff / Slide Review NO; Hematocrit 41.4 % (36-46); Hemoglobin 14.1 g/dL (12.0-16.0); Lymphocytes Absolute Auto 1300 /uL (1100-4500); Mean Corpuscular HGB Conc 34.0 % (30-36); Mean Corpuscular Hemoglobin 30.9 PG (26-34); Mean Corpuscular Volume 90.8 fL (80-100); Platelet Count 181 X10^3/uL (150-400)
[2025-01-05 06:53] LABS: INR 0.9 (0.9-1.3); Prothrombin Time 10.6 SECONDS (9.4-12.5)
[2025-01-05 06:57] LABS: Alanine Aminotransferase 66 IU/L (<35); Albumin 4.4 g/dL (3.5-5.0); Albumin Globulin Ratio 1.6 (1.0-2.8); Alkaline Phosphatase 66 U/L (38-126); Blood Urea Nitrogen 15 mg/dL (7-17); Calcium 9.1 mg/dL (8.4-10.2); Carbon Dioxide 29 mmol/L (22-32); Chloride 103 mmol/L (98-107); Estimated Glomerular Filt Rate > 60 mL/min (>60); Globulin 2.7 g/dL (1.7-4.1); Glucose 106 mg/dL (70-99); HEMOLYSIS < 15 (0-50); Lipase 118 U/L (23-300); Magnesium 1.9 mg/dL (1.6-2.3); Potassium 4.3 mmol/L (3.4-5.1); Sodium 138 mmol/L (137-145); Total Protein 7.1 g/dL (6.3-8.2)
[2025-01-05 07:01] LABS: PTT Partial Thromboplastin Tim 25 SECONDS (25.1-36.5)
[2025-01-05 07:09] LABS: NT-proBNP (BNP-Adult 18+) 110 pg/mL (<125); Troponin I < 0.012 ng/mL (0.01-0.034)
[2025-01-05 09:31] LABS: Troponin I 0.014 ng/mL (0.01-0.034)
== END 2025-01-05 10:04 | disposition home or self-care (01) ==
PROVIDERS: Student in an Organized Health Care Education/Training Program; Emergency Provider Family Medicine; PCP Family Medicine
DX: R55 Syncope and collapse (principal); S01.81XA Laceration without foreign body of other part of head, initial encounter; S09.90XA Unspecified injury of head, initial encounter; Z23 Encounter for immunization
CPT/HCPCS: 12011; 36415; 70450; 71045; 72125; 80053; 83690; 83735; 83880; 84484; 85025; 85610; 85730; 90471; 93005; 96360; 96361; 99284; 90715; J7030

== ENCOUNTER → 2025-01-12 09:09 | Outpatient (CLI) | payer BC, SELFPAY ==
--- NOTE | 2025-01-12 09:11 | DI.MG.S_ITS ---
MM screening mammo BI: 01/12/2025. BI-RADS: 1 CLINICAL: 59-year old female for bilateral screening mammogram. Tyrer-Cuzick lifetime risk of 12.1%. No personal or first-degree family history of breast cancer. PRIOR EXAMS 08/18/2023, 05/02/2020, 03/27/2019, 03/07/2018. MAMMOGRAPHY TECHNIQUE: 2D and 3D (tomosynthesis) digital mammographic views obtained, with additional images as needed for full coverage. Current study was also evaluated with a Computer Aided Detection (CAD) system. DENSITY C. The breasts are heterogeneously dense, which may obscure small masses. MAMMOGRAPHY FINDINGS Bilateral: No suspicious mass, asymmetry, microcalcification, or other abnormality seen. IMPRESSION: * No evidence of malignancy. RECOMMENDATIONS Bilateral * Annual screening mammography. OVERALL ASSESSMENT CATEGORY BI-RADS-1: Negative. The [employer] recommends annual screening mammography beginning at age 40 for women with average risk of breast cancer. ELECTRONICALLY SIGNED: Su Muro M.D. on 01/14/2025 at 10:58:05 PM PT Interpreting Station ID: [id number]
== END ==
PROVIDERS: PCP Family Medicine; Referring Provider Family Medicine; Visit Provider Family Medicine
DX: Z12.31 Encounter for screening mammogram for malignant neoplasm of breast (principal); R92.333 Mammographic heterogeneous density, bilateral breasts
CPT/HCPCS: 77063; 77067

== ENCOUNTER → 2025-01-31 09:07 | Outpatient (CLI) | payer BC, SELFPAY ==
--- NOTE | 2025-01-31 09:08 | DI.ECHO.S_ITS ---
[facility]---------+ [facility] : : [address] [place] : : [id number] : : Phone: [phone] Echocardiogram Report + + :Name: CHILO VELARDE Study Date: 01/31/2025 Height: 67 in : :[facility] ReadingLocation: Weight: 142 lb : : Gender: Female BSA: 1.7 m2 : :: 1965 Age: 59 yrs BP: 141/90 mmHg: :Reason For Study: SYNCOPE : :Ordering Physician: GRAZYNA, : :GARO Performed By: Catarino Crouch : :Referring: GARO GERONIMO : + + Interpretation Summary Normal sinus rhythm. Normal LV size and wall thickness; mild global hypokinesis and mildly reduced LV systolic function. EF is 45-50%. Stage I diastolic dysfunction. Mild LA enlargement; otherwise normal chamber sizes. No significant valve abnormalities. Mildly dilated ascending aorta measuring 4.1 cm in diameter. No prior echo available for comparison. Procedure: A two-dimensional transthoracic echocardiogram with color flow and Doppler was performed. The study quality was technically good. There is no prior echocardiogram noted for this patient. The patient was in normal sinus rhythm during the exam. Left Ventricle: The left ventricle is normal in size. There is normal left ventricular wall thickness. There is no ventricular septal defect visualized. The ejection fraction is estimated to be 45-50%. There is mild global hypokinesis of the left ventricle. Diastolic parameters suggest a relaxation abnormality of the left ventricle, consistent with probable normal filling pressures. Right Ventricle: The right ventricle is normal in size and function. Atria: The left atrium is mildly dilated. Right atrial size is normal. There is no Doppler evidence for an interatrial shunt. Mitral Valve: The mitral valve leaflets appear normal. There is no evidence of stenosis, fluttering, or prolapse. There is trace mitral regurgitation. Aortic Valve: The aortic valve is trileaflet. The aortic valve opens well. There is trace aortic regurgitation. Tricuspid Valve: The tricuspid valve leaflets are thin and pliable. There is trace tricuspid regurgitation. Pulmonic Valve: The pulmonic valve is not well seen, but is grossly normal. There is no pulmonic valvular regurgitation. Great Vessels: The aortic root is mildly dilated. The ascending aorta is mildly enlarged. The pulmonary artery is normal size. The IVC is of normal diameter and collapses greater than 50% with a sniff. This suggests a low right atrial pressure of 3 mm Hg. Pericardium/ Pleura There is no pericardial effusion. There is no pleural effusion. MMode/2D Measurements & Calculations LVIDd: 4.9 cm LVOT diam: 2.2 cm LVIDs: 3.6 cm Ao root diam: 3.8 cm FS: 27.1 % asc Aorta Diam: 4.1 cm EPSS: 1.1 cm IVSd: 0.78 cm LVPWd: 1.1 cm LV waters. diameter/BSA (cm/m^2): 2.8 LV sys. diameter/BSA (cm/m^2): 2.1 LA A2 area: 18.9 cm2 RA long axis: 4.3 cm LA A4 area: 19.7 cm2 RA area: 12.7 cm2 LA length (vol): 5.2 cm RA vol: 32.0 ml LA vol: 60.7 ml RA : 18.3 ml/m2 LA vol index: 34.7 ml/m2 IVC diam: 2.0 cm RVD1 (basal): 3.4 cm RVD2 (mid): 3.3 cm TAPSE: 2.4 cm Doppler Measurements & Calculations Ao V2 max: 124.6 cm/sec LVOT Max Steve: 93.0 cm/sec Ao V2 mean: 93.0 cm/sec LV V1 max P.5 mmHg Ao max P.2 mmHg LV V1 VTI: 20.3 cm Ao mean P.8 mmHg MATEUSZ(I,D): 2.6 cm2 Ao V2 VTI: 28.7 cm MATEUSZ(V,D): 2.7 cm2 sev ratio: 0.71 MATEUSZ indexed to BSA (cm^2/m^2): 1.5 MV E max steve: 45.1 cm/sec TR max steve: 222.8 cm/sec MV A max steve: 61.5 cm/sec TR max P.9 mmHg MV E/A: 0.73 PA V2 max: 89.0 cm/sec Med Peak E' Steve: 5.6 cm/sec PA V2 mean: 64.6 cm/sec E/E' med: 8.1 PA mean P.8 mmHg Lat Peak E' Steve: 4.9 cm/sec PA pr(Accel): 27.6 mmHg E/E' lat: 9.2 E/e' average: 8.6 MV dec time: 0.23 sec SV(LVOT): 74.4 ml Electronically signed by: Elaine Torres M.D. on Reading Physician:02/01/2025 02:40 AM
== END ==
LOC: ECHO 09:07
PROVIDERS: PCP Family Medicine; Referring Provider Family Medicine; Visit Provider Family Medicine
DX: I77.810 Thoracic aortic ectasia (principal); I77.89 Other specified disorders of arteries and arterioles; R55 Syncope and collapse
CPT/HCPCS: 93306

== ENCOUNTER → 2025-02-23 09:15 | Outpatient (CLI) | payer BC, SELFPAY ==
--- NOTE | 2025-02-23 09:16 | DI.NM.S_ITS ---
PROCEDURE: NM JORY PERF SPECT REST & STR Rest and exercise myocardial perfusion SPECT with gated imaging and ejection fraction RADIOPHARMACEUTICAL: 25.1 mCi Tc-99m sestamibi IV at rest and 25.3 mCi Tc-99m sestamibi IV at peak exercise. A 2 day-protocol was performed. INDICATIONS: Syncope TECHNIQUE: Radiopharmaceutical was injected at peak stress test, and also at rest. SPECT images were obtained. SPECT myocardial perfusion images were displayed in short axis, horizontal long axis, and vertical long axis views. Gated images were reviewed using [employer] software. COMPARISON: None. CARDIAC STRESS: A standard Caas treadmill exercise tolerance test was performed by the patient under the supervision of an attending staff. The patient exercised for 11 minutes and 59 seconds; 11.8 METS; functional aerobic impairment (SAIGE) is -71%. Hemodynamic data: There is normal blood pressure and heart rate response to exercise stress. Patient achieved 108% of maximum predicted heart rate at peak exercise. Peak blood pressure 190/100. Symptoms: Patient denied chest pain during exercise. EKG: No diagnostic EKG changes of ischemia; frequent PVCs. FINDINGS: Raw data: There is good myocardial labeling by radiotracer. No significant motion artifacts. Qhwi-su-[id number] ratio is 0.26 (normal is less than 0.38 for sestamibi tracer, and less than 0.50 for thallium tracer). Left ventricle function: Gated images demonstrate normal left ventricle wall thickening. No segmental wall motion abnormality. No transient ischemic dilation; TID is 0.77 (normal less than 1.3). The left ventricle resting end-diastolic volume is 121 mL. Left ventricle stress ejection fraction is 60; normal values are above 45%. Myocardial perfusion: There is normal distribution of activity in the left and right ventricular myocardium. No fixed or reversible perfusion defects. IMPRESSION: Low risk study for ischemia. No evidence of exercise-induced ischemia on ECG or SPECT imaging. Top normal LV size based on calculated LVEDV with normal function. Frequent PVCs noted throughout exercise. Normal hemodynamic response. Excellent exercise capacity. Dictated by: Deedee Lorenzo D.O. on 02/26/2025 at 16:58 Approved by: Deedee Lorenzo D.O. on 02/26/2025 at 17:02
== END ==
PROVIDERS: PCP Family Medicine; Referring Provider Family Medicine; Visit Provider Family Medicine
DX: I51.89 Other ill-defined heart diseases (principal); R55 Syncope and collapse
CPT/HCPCS: 78452; 93017; A9502